=== PATIENT | female | born 1955 | race Caucasian/White ===

== ENCOUNTER 2018-10-26 10:21 | Emergency (ER) | payer OTHER ==
[~2018-10-26] VITALS: Wt 85.8 kg
[~2018-10-26 10:21] MED LIST: ADV25050 INH; ARIP10TA10; ATEN-138 PO; AZIT250T PO; CETI5SOL PO; ESOM40CA PO; FAMO-96 PO; IBUP-727 PO; MONT10TA21 PO; PRED20TA PO; RISE35TA; ROSU40TA35 PO; SITA1TAB7; VALS1TAB65 PO
--- NOTE | 2018-10-26 11:46 | ERD ---
ER Documentation Chief Complaint Chief Complaint MECH FALL X 1 WEEK, HAS LOWER BACK PAIN HPI 62-year-old female with history of diabetes and hypertension, presents to the emergency department, complaining of 1 week with cough, sore throat and general malaise. The patient is also complaining of right thoracic back pain, she states that she fell backwards 1 week ago and she is concerned of possible fracture. ROS All systems reviewed and are negative except as per history of present illness. Medications Home Meds Active Scripts Ibuprofen* (Motrin*) 400 Mg Tab, 400 MG PO Q8, #12 TAB Prov:BRUNO DEAN MD 10/26/18 Hydrocodone/Acetaminophen (Clover 5-325 Tablet) 1 Each Tablet, 1 TAB PO TID PRN for PAIN, #12 TAB Prov:BRUNO DEAN MD 10/26/18 Azithromycin* (Zithromax*) 250 Mg Tablet, 250 MG PO .ZPACK DIRECTED, #6 TAB TAKE 500 MG (2 TABS) THE FIRST DAY THEN 250 MG (1 TAB) DAYS 2-5 Prov:BRUNO DEAN MD 10/26/18 Famotidine* (Pepcid*) 20 Mg Tablet, 20 MG PO BID for 14 Days, TAB Prov:ADENIKE FELICIANO DO 03/29/16 Cetirizine Hcl* (Cetirizine Hcl*) 5 Mg/5 Ml Solution, 10 MG PO DAILY, #30 ML Prov:JULIO ROLDAN MD 04/12/15 Prednisone* (Prednisone*) 20 Mg Tab, 40 MG PO DAILY for 5 Days, TAB Prov:JULIO ROLDAN MD 04/12/15 Azithromycin* (Zithromax*) 250 Mg Tablet, 250 MG PO .ZPACK DIRECTED, #6 TAB TAKE 500 MG (2 TABS) THE FIRST DAY THEN 250 MG (1 TAB) DAYS 2-5 Prov:JULIO ROLDAN MD 04/12/15 Reported Medications Aripiprazole* (Abilify*) 10 Mg Tablet 01/11/12 Ibuprofen (Motrin) 600 Mg Tablet, 1 TAB PO BID 01/11/12 Atenolol (Tenormin) 25 Mg Tab, 25 MG PO BID 01/11/12 Sitagliptin Phos-Metformin Hcl (Janumet) 1 Tab Tablet 01/11/12 Risedronate Sodium* (Actonel*) 35 Mg Tablet 01/11/12 Salmeterol Xinaf/Fluticasone* (Advair 250/50 Diskus*) 1 Inh Inha, 1 PUFF INH BID 01/11/12 Montelukast Sodium* (Singulair*) 10 Mg Tablet, 1 TAB PO DAILY 01/11/12 Esomeprazole Mag Trihydrate (Nexium) 40 Mg Capsule.dr, 1 CAP PO DAILY 01/11/12 Rosuvastatin Calcium* (Crestor*) 40 Mg Tablet, 1 TAB PO DAILY 01/11/12 Valsartan-Hydrochlorothiazide (Diovan HCT) 1 Tab Tablet, 1 TAB PO DAILY 01/11/12 Allergies Allergies: Coded Allergies: Penicillins (Unverified Allergy, Intermediate, 10/26/18) PMhx/Soc History of Surgery: Yes (gallbladder removed, hernia repair) Anesthesia Reaction: No Hx Neurological Disorder: No Hx Respiratory Disorders: Yes (asthma) Hx Cardiac Disorders: Yes (htn) Hx Psychiatric Problems: No Hx Miscellaneous Medical Probl: Yes (dm, bilateral knee pain) Hx Alcohol Use: No Hx Substance Use: No Hx Tobacco Use: Yes (1/2 pack a day) FmHx Family History: diabetes; No coronary disease Physical Exam Vitals Vital Signs Date Temp Pulse Resp B/P (MAP) Pulse Ox O2 O2 Flow FiO2 Time Delivery Rate 10/26/18 98.3 82 18 152/77 99 Room Air 13:29 (102) 10/26/18 98.1 99 18 159/76 99 10:26 (103) Physical Exam Const: No acute distress Head: Atraumatic Eyes: Normal Conjunctiva ENT: Normal External Ears, Nose and Mouth. Neck: Full range of motion. No meningismus. Resp: biLateral rhonchi to auscultation bilaterally Cardio: Regular rate and rhythm, no murmurs Abd: Soft, non tender, non distended. Normal bowel sounds Skin: No petechiae or rashes Back: No midline or flank tenderness Ext: No cyanosis, or edema Neur: Awake and alert Psych: Normal Mood and Affect Results 24 hrs Laboratory Tests Test 10/26/18 11:57 Urine Color YELLOW Urine Clarity CLEAR Urine pH 5.0 Urine Specific [place] 1.018 Urine Ketones NEGATIVE mg/dL Urine Nitrite NEGATIVE mg/dL Urine Bilirubin NEGATIVE mg/dL Urine Urobilinogen NEGATIVE mg/dL Urine Leukocyte Esterase NEGATIVE Jhonny/ul Urine Microscopic RBC 1 /HPF Urine Microscopic WBC 1 /HPF Urine Hemoglobin 1+ mg/dL Urine Glucose NEGATIVE mg/dL Urine Total Protein NEGATIVE mg/dl Patient: PRAMOD GARCIA : 1955 Age: 62 Sex: F MR #: [id number] DOS: 10/26/18 1152 Ordering MD: BRUNO DEAN MD Location: [facility] Room/Bed: PROCEDURE: XR Chest. CLINICAL INDICATION: Cough TECHNIQUE: PA and lateral chest x-ray. COMPARISON: CR CHEST 04/12/2015; CR CHEST 08/29/2007 FINDINGS: Increased infiltrate within the lingula. No pleural effusion. No pneumothorax. The cardiomediastinal silhouette is unremarkable. Vascular calcifications of the aorta are present compatible with atherosclerosis. Moderate degenerative changes of the thoracic spine suboptimally visualized due to technique. IMPRESSION: Increased infiltrate within the lingula. RPTAT: AADD .Boris See MD, MD Date Time Electronically viewed and signed by .Boris See MD, MD on 10/26/2018 12:35 .B/ CC: BRUNO DEAN MD [phone] Procedures/MDM Vital signs stable, no respiratory distress. Differential diagnosis include but not limited to: Respiratory infection bacterial/viral/fungal. Croup, bronchiolitis, pneumonitis, allergies, GERD. Less likely foreign body aspiration, cardiac related. Physical examination and clinical presentation consistent most likely with lung infiltrates, likely early superimposed bacterial infection. Also fall without significant injury. During the ED course the patient remained stable, no new complaints. Treatment options and clinical impression discussed with patient who agrees with management. The patient is stable to be treated outpatient and will be discharged home. Some side effects of prescribed medications (headache, rash, nausea, vomiting, diarrhea, interactions with other medications) were reviewed. The patient needs to follow up with the primary care provider in the next 48h. If symptoms persist, worsen or new symptoms develop, then patient should return to the ED immediately. Disclaimer: Inadvertent spelling and grammatical errors are likely due to EHR/dictation software use and do not reflect on the overall quality of patient care. Also, please note that the electronic time recorded on this note does not necessarily reflect the actual time of the patient encounter. Departure Diagnosis: Primary Impression: Cough Additional Impressions: Lung infiltrate Fall with no significant injury Condition: Stable Additional Instructions: Thank you very much for allowing us to participate in your care. Your health and safety is our top priority at [facility]. Call your primary care doctor TOMORROW for an appointment during the next 2-4 days and bring all the information and medications prescribed. Have prescriptions filled and follow precisely the directions on the label. If the symptoms get worse and your provider is unavailable, return to the Emergency Department immediately. BRUNO DEAN MD Oct 26, 2018 11:46
[2018-10-26] MEDS ORDERED: HYDR-4011 PO (13:11)
[2018-10-26] MEDS ORDERED: AZIT250T PO (13:11)
[2018-10-26] MEDS ORDERED: IBUP-1561 PO (13:11)
[2018-10-26 13:29] VITALS: BP 152/77; PULSE 82; RESP 18
== END 2018-10-26 13:20 | disposition home or self-care (01) ==
LOC: FTE 10:21
DX: R05 Cough (principal); R91.8 Other nonspecific abnormal finding of lung field; I10 Essential (primary) hypertension; E11.9 Type 2 diabetes mellitus without complications; J45.909 Unspecified asthma, uncomplicated; F17.210 Nicotine dependence, cigarettes, uncomplicated
CPT/HCPCS: 71046; 72072; 81001; Z7502